=== PATIENT | male | born 1965 | race Caucasian/White ===

== ENCOUNTER 2018-06-07 23:32 | Inpatient (IN) | payer SELFPAY ==
[2018-06-07] MEDS ORDERED: FAMOTIDINE 20 MG/50 ML IVPB 20 MG/50 ML MG IVPB ONE ×2 (23:45→23:59)
[2018-06-07] MEDS ORDERED: SODIUM CHLORIDE 1,000 ML IV ONE (23:45)
[2018-06-07] MEDS ORDERED: ONDANSETRON 4 MG/2 ML VIAL IVPB ONE (23:45)
[2018-06-07] MEDS ORDERED: KETOROLAC TROMETHAMINE 30 MG/1 ML VIAL IVPUSH ONE (23:45)
--- NOTE | 2018-06-07 23:45 | PDOC ---
History of Present Illness - General History Source: Patient Exam Limitations: No Limitations - History of Present Illness Initial Comments: 06/07/18 23:52 The patient is a 53 year old male with a significant past medical history of HTN and gallbladder stones who presents to the ED with one week of nausea, vomiting, and abdominal pain. Patient reports multiple episodes of nonbloody vomiting, 4-5 times a day for the past week, and notes his last episode of vomiting was several hours ago. He also reports constant non radiating epigastric pain that he describes as sharp and burning. Patient also reports chills associated with present symptoms. He states his symptoms feel similar to his history of gallbladder stones. Denies fever or chills. Denies diarrhea or constipation. Denies chest pain or shortness of breath. Denies any other symptoms. PAST MEDICAL HISTORY: Hypertension, gallbladder stone PAST SURGICAL HISTORY: no significant history FAMILY HISTORY: no pertinent history SOCIAL HISTORY: Pt lives with family and is employed. MEDICATIONS: reviewed ALLERGIES: As per nursing notes General: + chills. No fevers, no weakness, no weight loss HEENT: No change in vision. No sore throat,. No ear pain CardioVascular: No chest pain or shortness of breath Respiratory:No cough, or wheezing. Gastrointestinal: + Nausea, vomiting, abdominal pain. no diarrhea or constipation, No rectal bleeding Genitourinary: No dysuria, hematuria, or frequency Musculoskeletal: No joint or muscle pain or swelling Neurologic: No headache, vertigo, dizziness or loss of consciousness Psychiatric: nor depression Skin: No rashes or easy bruising Endocrine: no increased thirst or abnormal weight change Allergic: no skin or latex allergy All other systems reviewed and normal General: Well-nourished well-developed individual, no acute distress HEENT: Throat: Normal, tonsils normal, no erythema or exudate Neck: Supple, no meningeal signs, no lymphadenopathy Eyes::Pupils equal reactive and round, extraocular motion intact Chest: Nontender to palpation Cardiac: S1-S2 normal, regular rate and rhythm, no murmurs rubs or gallops Respiratory: Lungs clear to auscultation bilateral Abdomen: + tenderness on palpation on the epigastric area. Soft, nondistended, normal bowel sounds. Extremities: Warm, dry, no cyanosis, clubbing, or edema Skin: No rashes Neuro: Alert and oriented x3, nonfocal exam, grossly intact, normal gait Psych: Normal mood and affect <Rashad Castle - Last Filed: 06/07/18 23:52> - General History Source: Patient Exam Limitations: No Limitations - History of Present Illness Initial Comments: 06/08/18 00:30 A portion of this note was documented by scribe services under my direction. I have reviewed the details of the note, within reason, and agree with the documentation. The case summary and management plan written by me. Assessment plan: This is a 53-year-old male who comes in complaining of epigastric pain. Patient says he is also had some nausea and vomiting. Patient said the pain is been persistent times one week. Patient did not take anything for the pain. Patient has history of hypertension is healthy. Patient also says he has history of gallstones. Workup initiated including CBC, comp, EKG, chest x-ray, ultrasound of the gallbladder, lipase Patient given Toradol for the pain and Zofran for nausea. Or reassess and review workup EKG shows normal sinus rhythm at a rate of 97, no acute ST-T wave changes however there is some inverted T's inferiorly. Chest x-ray no acute pathology 06/08/18 01:44 Reassessment. Patient still uncomfortable so we'll give some more morphine. Patient's gallbladder ultrasound shows gallstones with a thickened wall. Patient also had a mild white count with left shift. Patient is afebrile however. Admission discussed with Dr. Wayne surgeon who was accepted patient for admission but requested he be transferred to [facility]. <Noreen Birch I - Last Filed: 06/08/18 01:45> - General Chief Complaint: Pain, Acute Stated Complaint: ABD PAIN Time Seen by Provider: 06/07/18 23:35 Past History <Rashad Castle - Last Filed: 06/07/18 23:52> - Past Medical History COPD: Yes GI Disorders: Yes (GALLSTONES) Psychiatric Problems: Yes - Suicide/Smoking/Psychosocial Hx Smoking History: Never smoked <Noreen Birch I - Last Filed: 06/08/18 01:45> - Past Medical History Allergies/Adverse Reactions: Allergies Allergy/AdvReac Type Severity Reaction Status Date / Time No Known Allergies Allergy Unverified 06/07/18 23:38 Home Medications: Ambulatory Orders Amlodipine Besylate 5 mg PO DAILY 06/07/18 Escitalopram Oxalate [Lexapro -] 5 mg PO DAILY 06/07/18 Losartan Potassium 100 mg PO DAILY 06/07/18 *Physical Exam - Vital Signs Last Vital Signs Temp Pulse Resp BP Pulse Ox 98.2 F 104 H 18 196/106 100 06/07/18 23:40 06/07/18 23:40 06/07/18 23:40 06/07/18 23:40 06/07/18 23:40 <Rashad Castle - Last Filed: 06/07/18 23:52> - Vital Signs Last Vital Signs Temp Pulse Resp BP Pulse Ox 98.2 F 104 H 18 196/106 100 06/07/18 23:40 06/07/18 23:40 06/07/18 23:40 06/07/18 23:40 06/07/18 23:40 <Noreen Birch I - Last Filed: 06/08/18 01:45> ED Treatment Course - LABORATORY CBC & Chemistry Diagram: 06/08/18 00:01 06/08/18 00:01 <Noreen Birch I - Last Filed: 06/08/18 01:45> *DC/Admit/Observation/Transfer - Attestations Scribe Attestion: 06/07/18 23:52 Documentation prepared by Rashad Castle, acting as director medical safety for Noreen Birch MD <Rashad Castel - Last Filed: 06/07/18 23:52> - Discharge Dispostion Decision to Admit order: Yes <Noreen Birch I - Last Filed: 06/08/18 01:45> Diagnosis at time of Disposition: Acute cholecystitis - Discharge Dispostion Condition at time of disposition: Stable - Referrals Referrals: Jarvis Warren MD [Primary Care Provider] - - Patient Instructions - Post Discharge Activity
[2018-06-07] MEDS ORDERED: ONDANSETRON 4 MG/2 ML VIAL ONE (23:59)
[2018-06-07] MEDS ORDERED: KETOROLAC TROMETHAMINE 30 MG/1 ML VIAL ONE (23:59)
[2018-06-08] MEDS ORDERED: morphine CARPU-JECT 4 MG/1 ML DISP.SYRIN IVPUSH ONE (00:38)
[2018-06-08] MEDS ORDERED: morphine SULFATE 4 MG/ML VIAL ONE ×2 (00:40→01:45)
[2018-06-08 01:06] LABS: BASO % 0.5 % (0-2.0); EOS % 0.2 % (0-4.5); HEMATOCRIT 42.2 % (35.4-49); HEMOGLOBIN 13.4 GM/dL (11.7-16.9); LYMPH % 11.7 % (8-40); MCH 22.2 pg (25.7-33.7); MCHC 31.9 g/dl (32.0-35.9); MEAN CELL VOLUME 69.6 fl (80-96); MEAN PLT VOLUME 8.9 fl (7.5-11.1); MONO % 4.9 % (3.8-10.2); NEUT % 82.7 % (42.8-82.8); PLATELET COUNT 273 K/MM3 (134-434); RBC 6.06 M/mm3 (4.00-5.60); WHITE BLOOD COUNT 10.1 K/mm3 (4.0-10.0)
[2018-06-08 01:24] LABS: ALBUMIN 4.2 g/dl (3.4-5.0); ANION GAP 8 MMOL/L (8-16); BILIRUBIN,TOTAL 0.7 mg/dL (0.2-1.0); BLOOD UREA NITROGEN 16 mg/dL (7-18); CALCIUM 9.1 mg/dL (8.5-10.1); CHLORIDE 102 mmol/L (98-107); CO2 27 mmol/L (21-32); CREATININE 1.2 mg/dL (0.55-1.3); GLUCOSE,RANDOM 102 mg/dL (74-106); LIPASE 169 U/L (73-393); SGPT/ALT 38 U/L (13-61); SODIUM 137 mmol/L (136-145); TOT PROT 8.4 g/dl (6.4-8.2)
[2018-06-08 01:25] LABS: ALK PHOS 65 U/L (45-117)
[2018-06-08 01:29] LABS: POTASSIUM 4.8 mmol/L (3.5-5.1); SGOT/AST 38 U/L (15-37)
[2018-06-08] MEDS ORDERED: PIPERACILLIN/TAZOB 4.5 GM 4.5 GM in DEXTROSE 5%-WATER 100 ML IVPB ONE (01:33)
[2018-06-08] MEDS ORDERED: PIPERACILLIN/TAZOBACTAM 4.5 GM VIAL IVPB ONE (01:35)
[2018-06-08] MEDS ORDERED: morphine CARPU-JECT 2 MG/1 ML DISP.SYRIN IVPUSH ONE (01:41)
[2018-06-08 05:08] VITALS: BMI 29.5
--- NOTE | 2018-06-08 07:32 | HP ---
CHIEF COMPLAINT: Abdominal Pain PCP: Dr. Jarvis Warren HISTORY OF PRESENT ILLNESS: 53yo M with history of HTN and Depression who presented to [facility] with one week of nausea, NB/NB vomiting, and nonradiating RUQ pain. Pt reports this being similar to previous biliary colic that he has had (both being seen by an ER in [place]). Pt endorses some chills prior to his admission, however currently it has resolved. Pt reports he can walk up multiple flights of stairs without difficulty or shortness of breath. He denies shortness of breath, chest pain, palpitations, diarrhea, constipation. Pt denies any prior diagnosis with ЮЛИЯ or snoring in his sleep. Of note, pt reports being noncompliant with his medication due to lack of insurance. He reports previously taking his Norvasc and Amlodipine and self- reporting that his BP was controlled at that time. 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 [employer] Drugs: Uses cocaine, previously used marijuana Family History: Deferred Allergies No Known Allergies Allergy (Unverified 06/07/18 23:38) HOME MEDICATIONS: Home Medications Medication Instructions Recorded Amlodipine Besylate 5 mg PO DAILY 06/07/18 Escitalopram Oxalate [Lexapro -] 5 mg PO DAILY 06/07/18 Losartan Potassium 100 mg PO DAILY 06/07/18 REVIEW OF SYSTEMS CONSTITUTIONAL: Present: Chills Absent: fever, diaphoresis, generalized weakness, malaise, weight change HEENT: Absent: rhinorrhea, nasal congestion, throat pain, throat swelling, difficulty swallowing, mouth swelling, ear pain, eye pain, visual changes CARDIOVASCULAR: Absent: chest pain, syncope, palpitations, irregular heart rate, lightheadedness , peripheral edema RESPIRATORY: Absent: cough, shortness of breath, dyspnea with exertion, orthopnea, wheezing, stridor, hemoptysis GASTROINTESTINAL: Present: Abd pain, nausea, vomiting Absent: abdominal distension, diarrhea, constipation, melena, hematochezia GENITOURINARY: Absent: dysuria, frequency, urgency, hesitancy HEMATOLOGIC/IMMUNOLOGIC: Absent: easy bleeding, easy bruising NEUROLOGIC: Absent: headache, focal weakness or paresthesias, dizziness PSYCHIATRIC: Absent: anxiety, suicidal ideation PHYSICAL EXAMINATION Vital Signs - 24 hr 06/07/18 06/08/18 06/08/18 23:40 01:23 02:21 Temperature 98.2 F 98.7 F Pulse Rate 104 H Pulse Rate [ 93 H 96 H Radial] Respiratory 18 16 16 Rate Blood Pressure 196/106 Blood Pressure 183/106 148/95 [Arm] O2 Sat by Pulse 100 99 97 Oximetry (%) 06/08/18 06/08/18 03:45 04:58 Temperature 98.0 F Pulse Rate 66 Pulse Rate [ 75 Radial] Respiratory 14 18 Rate Blood Pressure 149/95 Blood Pressure 131/78 [Arm] O2 Sat by Pulse 97 99 Oximetry (%) GENERAL: Awake, alert, and fully oriented, in no acute distress. HEENT: EOMI, WINNIE, sclera anicteric, [id number] mucosa LUNGS: CTA bilaterally. No wheezes, rhonchi or crackles. No accessory muscle use. On RA HEART: RRR, normal S1 and S2 without murmur ABDOMEN: Soft, nondistended, hypoactive BS, slight RUQ tenderness, no rebound or guarding, no masses, no hepatomegaly percussed, - Dow's at this time MUSCULOSKELETAL: No CVA tenderness. EXTREMITIES: 2+ DP and radial pulses, No edema. No calf tenderness NEUROLOGICAL: Nonfocal. Normal speech. Gait not observed PSYCHIATRIC: Cooperative. Good eye contact. Appropriate mood and affect. SKIN: Warm, dry, no rashes or lesions noted Laboratory Results - last 24 hr 06/08/18 06/08/18 06/08/18 00:01 00:01 00:01 WBC 10.1 H RBC 6.06 H Hgb 13.4 Hct 42.2 MCV 69.6 L MCH 22.2 L MCHC 31.9 L RDW 16.0 H Plt Count 273 MPV 8.9 Absolute Neuts (auto) 8.4 H Neutrophils % 82.7 Lymphocytes % 11.7 Monocytes % 4.9 Eosinophils % 0.2 Basophils % 0.5 Nucleated RBC % 0 Sodium 137 Potassium 4.8 Chloride 102 Carbon Dioxide 27 Anion Gap 8 BUN 16 Creatinine 1.2 Creat Clearance w eGFR > 60 Random Glucose 102 Calcium 9.1 Total Bilirubin 0.7 AST 38 H ALT 38 Alkaline Phosphatase 65 Creatine Kinase Creatine Kinase Index CK-MB (CK-2) Troponin I Cancelled Total Protein 8.4 H Albumin 4.2 Lipase 169 06/08/18 00:01 WBC RBC Hgb Hct MCV MCH MCHC RDW Plt Count MPV Absolute Neuts (auto) Neutrophils % Lymphocytes % Monocytes % Eosinophils % Basophils % Nucleated RBC % Sodium Potassium Chloride Carbon Dioxide Anion Gap BUN Creatinine Creat Clearance w eGFR Random Glucose Calcium Total Bilirubin AST ALT Alkaline Phosphatase Creatine Kinase 157 Creatine Kinase Index 0.6 CK-MB (CK-2) < 1.00 Troponin I < 0.02 Total Protein Albumin Lipase EKG - NSR @ 97 bpm. Normal axis. Isolated TWI in lead II only; otherwise no ST abnormalities. QTc WNL ASSESSMENT/PLAN: 53yo M with c/o abdominal pain/n/v who is admitted for acute cholecystitis 1) Acute cholecystitis --Pain control: Toradol 30 q6h pain 6-10 PRN, Ofirmev 1gm q6h pain 1-5 PRN --Zofran 4mg q6h PRN for nausea --NPO (BP medication with sip of water ok) --Gentle IVF while NPO --RUQ performed in ER; awaiting read. Per mine: thickened GB wall with apparent cholelithiasis. CBD .58-.6cm --CXR without acute pathology noted --SCD --Rocephin 1gm daily for surgery ppx --Dr. Wayne consulted 2) HTN --Initially elevated due to lack of pain control --Norvasc 5mg qdaily starting now --Will add on home dose Losartan 100mg qDaily if need prior to surgery; otherwise will initiate after 3) Polysubstance use --Not in withdrawals --Would avoid morphine as a result --Will monitor FEN: Fluids: D5-LR +20KCl Electrolyte abnormalities: None currently Nutrition: NPO except sip of water with BP medication PPX: DVT - SCDs both legs GI - Not indicated currently Dispo: Admit M/S; awaiting surgery rec's Surgery stratification: Low-mod pt for moderate risk surgery due to intraabdominal nature only Case discussed with Dr. Ole Steele, DO - IM PGY-2 Visit type - Emergency Visit Emergency Visit: No - New Patient This patient is new to me today: Yes Date on this admission: 06/08/18 - Critical Care Critical Care patient: No Hospitalist Screening - Colonoscopy Questionnaire Colonoscopy Questionnaire: Colonoscopy Questionnaire - Patient: 50 - 75 years old and never had a screening colonoscopy: Unknown History of colon or rectal polyps, or CA: Unknown History of IBD, Crohn's disease or UC: Unknown History of abdominal radiation therapy as a child: Unknown - Relative: 1 with colon or rectal CA, or polyps at age 60 or younger: Unknown Colon or rectal CA diagnosed at age 45 or younger: Unknown Multiple relatives with colon or rectal CA: Unknown - Outcome: Screening Result: Negative Screen
[2018-06-08] MEDS ORDERED: MORPHINE SULFATE 2 MG/ML VIAL IVPUSH PRN (07:36)
[2018-06-08] MEDS ORDERED: ACETAMINOPHEN 325 MG TABLET (FP) PO PRN (07:54)
[2018-06-08] MEDS ORDERED: ONDANSETRON 4 MG/2 ML VIAL IVPUSH PRN (07:54)
[2018-06-08] MEDS ORDERED: KETOROLAC TROMETHAMINE 30 MG/1 ML VIAL IVPUSH PRN (08:16)
[2018-06-08] MEDS ORDERED: ACETAMINOPHEN 1000 MG/100 ML VIAL (NON FORMULARY) IVPB PRN (08:21)
[2018-06-08] MEDS: D5-LR+20 MEQ KCL - 20 MEQ/1,000 ML INFUS.BAG IV SCH ×2 (08:36→13:54)
[2018-06-08 08:37] LABS: BASO % 0.4 % (0-2.0); EOS % 1.4 % (0-4.5); HEMATOCRIT 36.3 % (35.4-49); HEMOGLOBIN 11.8 GM/dL (11.7-16.9); LYMPH % 34.1 % (8-40); MCH 22.4 pg (25.7-33.7); MCHC 32.4 g/dl (32.0-35.9); MEAN CELL VOLUME 69.1 fl (80-96); MONO % 7.1 % (3.8-10.2); PLATELET COUNT 230 K/MM3 (134-434); RBC 5.26 M/mm3 (4.00-5.60); RDW 16.1 % (11.9-15.9); WHITE BLOOD COUNT 7.1 K/mm3 (4.0-10.0)
[2018-06-08 09:01] LABS: ALBUMIN 3.3 g/dl (3.4-5.0); ALK PHOS 48 U/L (45-117); ANION GAP 9 MMOL/L (8-16); BILIRUBIN,DIRECT 0.2 mg/dL (0.0-0.2); BILIRUBIN,TOTAL 0.9 mg/dL (0.2-1.0); BLOOD UREA NITROGEN 15 mg/dL (7-18); CALCIUM 8.4 mg/dL (8.5-10.1); CHLORIDE 106 mmol/L (98-107); CO2 27 mmol/L (21-32); CREATININE 1.1 mg/dL (0.55-1.3); GLUCOSE,RANDOM 81 mg/dL (74-106); MAGNESIUM 2.1 mg/dL (1.8-2.4); PHOSPHOROUS 4.4 mg/dL (2.5-4.9); SGOT/AST 9 U/L (15-37); SGPT/ALT 27 U/L (13-61); SODIUM 142 mmol/L (136-145); TOT PROT 6.3 g/dl (6.4-8.2)
[2018-06-08 09:12] LABS: INR 1.12 (0.83-1.09); PROTHROMBIN TIME (PATIENT) 12.6 SEC (9.7-13.0)
[2018-06-08] MEDS ORDERED: cefTRIAXone SODIUM 1 GM VIAL ONE (09:14)
[2018-06-08] MEDS ORDERED: DEXTROSE 5%-WATER - 50 ML IVPB ONE (09:15)
[2018-06-08] MEDS: CEFTRIAXONE 1 GM in DEXTROSE 5%-WATER - 50 ML IVPB SCH (09:17)
[2018-06-08] MEDS: amLODIPine BESYLATE 5 MG TABLET (FP) PO SCH (09:17)
--- NOTE | 2018-06-08 09:30 | PN ---
Teaching Attending Note Name of Resident: Jordy Steele ATTENDING PHYSICIAN STATEMENT I saw and evaluated the patient. I reviewed the resident's note and discussed the case with the resident. I agree with the resident's findings and plan as documented with exceptions below. SUBJECTIVE: 53 yom with PMHx of HTN, depression, polysubstance use (cocaine, occasional street "oxy"), prior ETOH abuse, comes with 1 week of nausea, bilious nonbloody vomitus, abdominal pain RUQ/ruddy-umbilical intermittent, occasionally associated with PO intake, decreased po intake and subjective chills. Patient reportedly had a similar episode 1 year ago, when states was advised to have his gall bladder removed but he never followed up. Reports being seen for the same complaints a week ago at another hospital and sent out on oral medications. Currently denies any nausea, vomiting, some RUQ abdominal pain. Has not been compliant with his follow ups. Reports being off his meds for a while, recently resumed his anti-hypertensives 3 weeks ago. Last ETOH/cocaine use reportedly 3 weeks ago none recently. Also reports being 'hooked' on pain meds when given for herniated disc years ago. 12 point ROS done, neg except above. No c/o exertional chest pain, dyspnea, orthopnea, PND, leg swelling or new concerns. OBJECTIVE: Vital Signs Period Temp Pulse Resp BP Sys/Ingram Pulse Ox Last 24 Hr 98.0 F-98.7 F 63-104 14-20 131-196/78-106 97-100 Intake & Output 06/05/18 06/06/18 06/07/18 06/08/18 23:59 23:59 23:59 23:59 Intake Total 1300 Balance 1300 Weight 240 lb 236 lb 3 oz GENERAL: Awake, alert, and fully oriented, in no acute distress. HEAD: Normal with no signs of trauma. EYES: Pupils equal, round and reactive to light, extraocular movements intact, sclera anicteric, conjunctiva clear. No lid lag. EARS, NOSE, THROAT: Ears normal, nares patent, oropharynx clear without exudates. Moist mucous membranes. NECK: soft, supple, no JVD LUNGS: Breath sounds equal, clear to auscultation bilaterally. No wheezes, and no crackles. No accessory muscle use. HEART: S1S2 regular ABDOMEN: Soft, positive Dow's sign, NT otherwise, hepatomegaly, ND, no voluntary or involuntary guarding or rigidity, positive bowel sounds. MUSCULOSKELETAL: Normal range of motion at all joints. No bony deformities or tenderness. No CVA tenderness. UPPER EXTREMITIES: 2+ pulses, warm, well-perfused. No cyanosis. No clubbing. No peripheral edema. LOWER EXTREMITIES: 2+ pulses, warm, well-perfused. No calf tenderness. minimal Right toes edema, non tender (reports since hitting his right foot to a musical instrument few weeks ago NEUROLOGICAL: Cranial nerves II-XII intact. Normal speech. Facial symmetry, tongue midline, PERRL, EOMI, power 5/5, decreased sensation right toes (reports since trauma more than a month ago) PSYCHIATRIC: Cooperative. Good eye contact. Appropriate mood and affect. SKIN: Warm, dry, normal turgor, no rashes or lesions noted, normal capillary refill. Home Medications Medication Instructions Recorded Amlodipine Besylate 5 mg PO DAILY 06/07/18 Escitalopram Oxalate [Lexapro -] 5 mg PO DAILY 06/07/18 Losartan Potassium 100 mg PO DAILY 06/07/18 Active Medications Acetaminophen (Ofirmev Injection -) 1,000 mg IVPB Q6H PRN PRN Reason: PAIN LEVEL 1-5 Amlodipine Besylate (Norvasc -) 5 mg PO DAILY [facility] Last Admin: 06/08/18 09:17 Dose: 5 mg Dextrose/Lactated Ringer's (D5-Lr+20 Meq Kcl -) 20 meq in 1,000 mls @ 75 mls/ hr IV ASDIR [facility] Last Admin: 06/08/18 08:36 Dose: 75 mls/hr Ceftriaxone Sodium 1 gm/ (Dextrose) 50 mls @ 100 mls/hr IVPB DAILY [facility]; Protocol Last Admin: 06/08/18 09:17 Dose: 100 mls/hr Ketorolac Tromethamine (Toradol Injection -) 30 mg IVPUSH Q6H PRN PRN Reason: PAIN LEVEL 7 - 10 Stop: 06/13/18 08:15 Ondansetron HCl (Zofran Injection) 4 mg IVPUSH Q6H PRN PRN Reason: NAUSEA AND/OR VOMITING Laboratory Results - last 24 hr 06/08/18 06/08/18 06/08/18 00:01 00:01 00:01 WBC 10.1 H RBC 6.06 H Hgb 13.4 Hct 42.2 MCV 69.6 L MCH 22.2 L MCHC 31.9 L RDW 16.0 H Plt Count 273 MPV 8.9 Absolute Neuts (auto) 8.4 H Neutrophils % 82.7 Lymphocytes % 11.7 Monocytes % 4.9 Eosinophils % 0.2 Basophils % 0.5 Nucleated RBC % 0 PT with INR INR Sodium 137 Potassium 4.8 Chloride 102 Carbon Dioxide 27 Anion Gap 8 BUN 16 Creatinine 1.2 Creat Clearance w eGFR > 60 Random Glucose 102 Calcium 9.1 Phosphorus Magnesium Total Bilirubin 0.7 Direct Bilirubin AST 38 H ALT 38 Alkaline Phosphatase 65 Creatine Kinase Creatine Kinase Index CK-MB (CK-2) Troponin I Cancelled Total Protein 8.4 H Albumin 4.2 Lipase 169 06/08/18 06/08/18 06/08/18 00:01 08:18 08:18 WBC 7.1 RBC 5.26 Hgb 11.8 Hct 36.3 MCV 69.1 L MCH 22.4 L MCHC 32.4 RDW 16.1 H Plt Count 230 MPV 8.0 D Absolute Neuts (auto) 4.0 Neutrophils % 57.0 D Lymphocytes % 34.1 D Monocytes % 7.1 Eosinophils % 1.4 D Basophils % 0.4 Nucleated RBC % 0 PT with INR INR Sodium 142 Potassium 4.0 Chloride 106 Carbon Dioxide 27 Anion Gap 9 BUN 15 Creatinine 1.1 Creat Clearance w eGFR > 60 Random Glucose 81 Calcium 8.4 L Phosphorus 4.4 Magnesium 2.1 Total Bilirubin 0.9 Direct Bilirubin 0.2 AST 9 L ALT 27 Alkaline Phosphatase 48 Creatine Kinase 157 Creatine Kinase Index 0.6 CK-MB (CK-2) < 1.00 Troponin I < 0.02 Total Protein 6.3 L Albumin 3.3 L Lipase 06/08/18 08:18 WBC RBC Hgb Hct MCV MCH MCHC RDW Plt Count MPV Absolute Neuts (auto) Neutrophils % Lymphocytes % Monocytes % Eosinophils % Basophils % Nucleated RBC % PT with INR 12.60 INR 1.12 H Sodium Potassium Chloride Carbon Dioxide Anion Gap BUN Creatinine Creat Clearance w eGFR Random Glucose Calcium Phosphorus Magnesium Total Bilirubin Direct Bilirubin AST ALT Alkaline Phosphatase Creatine Kinase Creatine Kinase Index CK-MB (CK-2) Troponin I Total Protein Albumin Lipase Gall bladder US - thickened wall, gall stones, hepatomegaly, mild fatty infiltration EKG NSR, QTc 390s CXR prelim read, no acute process ASSESSMENT AND PLAN: 53 yom with HTN, depression, ETOH/cocaine use, admitted with acute calculous cholecystitis. -Acute uncomplicated calculous cholecystitis -Uncontrolled HTN, likely from non compliance -?Mild LEO from hypovolumia -Depression -ETOH/cocaine use Plan: Surgery consulted with Dr. Wayne, aware, follow up for surgical recs. NPO, IVF, pain control with tylenol/toradol. Blood cx. Ceftriaxone for now. Serial abdominal exams. Hold losartan. IVF, monitor renal function. Continue norvasc. Continue lexapro Drug screen Type and screen/coags DVTPPX heparin Dispo pending surgical plans and clinical improvement. Plan discussed with patient in detail, all questions answered Patient relays understanding and in agreement with the plan. Total admit time 65 min.
[2018-06-08] MEDS ORDERED: PATIENT'S OWN MEDICATION (NON-FORMULARY) (Losartan Potassium [Losartan Potassium] 100 MG) PO SCH (10:00)
--- NOTE | 2018-06-08 10:02 | CONSULT ---
- Consultation REQUESTING PROVIDER: Rodolfo BARNETT CONSULT REQUEST: We have been asked to surgically evaluate this patient for abdominal pain/nausea and vomiting. PCP:Calvin Handy MD HISTORY OF PRESENT ILLNESS: # episodes of abdominal pain in a patient w/ known gallstones; h/o ruq/epigastric abdominal pain worked up in the past; he was intially found to have symptomatic cholelithiasis and was told he did not need to have surgery; after that he has had # similar episodes and reports # visits to local ER's where he was txed and released and told he could gave elective surgery; this never happened and he presents here now; he relates to post prandial colicky RUQ pain; he denies dark urine/light stools; he has no other GI / c/o; he got relief from morphine in the ER. PMHx: hypertension; known cholelithiasis PSHx: none Home Medications Medication Instructions Recorded Amlodipine Besylate 5 mg PO DAILY 06/07/18 Escitalopram Oxalate [Lexapro -] 5 mg PO DAILY 06/07/18 Losartan Potassium 100 mg PO DAILY 06/07/18 Allergies Allergy/AdvReac Type Severity Reaction Status Date / Time No Known Allergies Allergy Unverified 06/07/18 23:38 PHYSICAL EXAM: GENERAL: Awake, alert, and fully oriented, in no acute distress. HEAD: Normal with no signs of trauma. EYES: sclera anicteric, conjunctiva clear. NECK: Normal ROM, supple without lymphadenopathy, JVD, or masses. ABDOMEN: Soft, slight RUQ tenderness to palpation, not distended, normoactive bowel sounds, no guarding, no rebound, no masses. No organomegaly. No hernias MUSCULOSKELETAL: Normal ROM at all joints. No bony deformities or tenderness. No CVA tenderness. UPPER EXTREMITIES: 2+ pulses, warm, well-perfused. No cyanosis. Cap refill <2 seconds. No peripheral edema. LOWER EXTREMITIES: 2+ pulses, warm, well-perfused. No calf tenderness. No peripheral edema. NEUROLOGICAL: Normal speech, gait not observed. PSYCH: Cooperative. Good eye contact. Appropriate mood and affect. SKIN: Warm, dry, normal turgor, no rashes or lesions noted. Vital Signs Temperature 98.2 F 06/08/18 09:00 Pulse Rate 63 06/08/18 09:00 Respiratory Rate 20 06/08/18 09:00 Blood Pressure 146/92 06/08/18 09:00 O2 Sat by Pulse Oximetry (%) 99 06/08/18 04:58 Lab Results WBC 7.1 K/mm3 (4.0-10.0) 06/08/18 08:18 RBC 5.26 M/mm3 (4.00-5.60) 06/08/18 08:18 Hgb 11.8 GM/dL (11.7-16.9) 06/08/18 08:18 Hct 36.3 % (35.4-49) 06/08/18 08:18 MCV 69.1 fl (80-96) L 06/08/18 08:18 MCHC 32.4 g/dl (32.0-35.9) 06/08/18 08:18 RDW 16.1 % (11.9-15.9) H 06/08/18 08:18 Plt Count 230 K/MM3 (134-434) 06/08/18 08:18 Sodium 142 mmol/L (136-145) 06/08/18 08:18 Potassium 4.0 mmol/L (3.5-5.1) 06/08/18 08:18 Chloride 106 mmol/L (98-107) 06/08/18 08:18 Carbon Dioxide 27 mmol/L (21-32) 06/08/18 08:18 Anion Gap 9 MMOL/L (8-16) 06/08/18 08:18 BUN 15 mg/dL (7-18) 06/08/18 08:18 Creatinine 1.1 mg/dL (0.55-1.3) 06/08/18 08:18 Random Glucose 81 mg/dL (74-106) 06/08/18 08:18 Calcium 8.4 mg/dL (8.5-10.1) L 06/08/18 08:18 INR 1.12 (0.83-1.09) H 06/08/18 08:18 US-cholelithiasis o/w normal Labs and remainder of w/u to date reviewed. IMP: acute cholecystitis/cholelithiasis PLAN: Clear liquid diet as tolerated; IVF; pain control; IVAB's; for lap rolf possible open 06/10/18; r/b/t/a's d/w him and he is amenable. Matteo Wayne MD FACS
[2018-06-08] MEDS: morphine SULFATE 4 MG/ML VIAL IVPUSH PRN ×3 (11:12→22:07)
[2018-06-08] MEDS: LOSARTAN POTASSIUM 50 MG TABLET (FP) PO SCH (13:52)
[2018-06-08 14:06] LABS: URINE APPEARANCE CLEAR; URINE BILIRUBIN NEGATIVE (<2.0 mg/dL); URINE COLOR LTYELLOW; URINE GLUCOSE (UA) NEGATIVE (NEGATIVE); URINE KETONE NEGATIVE (NEGATIVE); URINE LEUK ESTERASE NEGATIVE (NEGATIVE); URINE NITRITE NEGATIVE (NEGATIVE); URINE PROTEIN NEGATIVE (NEGATIVE); URINE UROBILINOGEN NEGATIVE mg/dL (0.2-1.0)
[2018-06-08 14:24] LABS: COCAINE, UR NEGATIVE ng/ml (CUTOFF=300); METHADONE, UR NEGATIVE ng/ml (CUTOFF=300); OPIATES, URI POSITIVE ng/ml (CUTOFF=300); URINE BARBITURATES NEGATIVE ng/ml (CUTOFF=200); URINE BENZODIAZEPINES POSITIVE ng/ml (CUTOFF=200)
[2018-06-08 14:29] LABS: PHENCYCLIDINE,URINE NEGATIVE ng/ml (CUTOFF=25); URINE AMPHETAMINES NEGATIVE ng/ml (CUTOFF=500)
[2018-06-09] MEDS: D5-LR+20 MEQ KCL - 20 MEQ/1,000 ML INFUS.BAG IV SCH ×3 (06:11→21:36)
[2018-06-09] MEDS ORDERED: morphine SULFATE 4 MG/ML VIAL IVPUSH PRN (08:06)
[2018-06-09] MEDS ORDERED: cefTRIAXone SODIUM 1 GM VIAL ONE (08:29)
[2018-06-09] MEDS ORDERED: DEXTROSE 5%-WATER - 50 ML IVPB ONE (08:29)
[2018-06-09] MEDS: ESCITALOPRAM OXALATE 10 MG TABLET (FP) PO SCH (09:07)
[2018-06-09] MEDS: amLODIPine BESYLATE 5 MG TABLET (FP) PO SCH (09:07)
[2018-06-09] MEDS: LOSARTAN POTASSIUM 50 MG TABLET (FP) PO SCH (09:07)
[2018-06-09] MEDS: CEFTRIAXONE 1 GM in DEXTROSE 5%-WATER - 50 ML IVPB SCH (09:07)
[2018-06-09 09:10] LABS: BASO % 0.8 % (0-2.0); EOS % 2.1 % (0-4.5); HEMATOCRIT 38.5 % (35.4-49); LYMPH % 23.3 % (8-40); MCH 21.8 pg (25.7-33.7); MCHC 31.3 g/dl (32.0-35.9); MEAN CELL VOLUME 69.8 fl (80-96); MEAN PLT VOLUME 8.4 fl (7.5-11.1); MONO % 7.1 % (3.8-10.2); NEUT % 66.7 % (42.8-82.8); PLATELET COUNT 221 K/MM3 (134-434); RBC 5.52 M/mm3 (4.00-5.60); RDW 15.7 % (11.9-15.9); WHITE BLOOD COUNT 6.7 K/mm3 (4.0-10.0)
[2018-06-09 09:53] LABS: ALBUMIN 3.4 g/dl (3.4-5.0); ANION GAP 10 MMOL/L (8-16); BLOOD UREA NITROGEN 10 mg/dL (7-18); CALCIUM 8.5 mg/dL (8.5-10.1); CHLORIDE 104 mmol/L (98-107); CO2 27 mmol/L (21-32); GLUCOSE,RANDOM 101 mg/dL (74-106); MAGNESIUM 2.1 mg/dL (1.8-2.4); POTASSIUM 4.7 mmol/L (3.5-5.1); SODIUM 141 mmol/L (136-145)
[2018-06-09 09:56] LABS: ALK PHOS 47 U/L (45-117); BILIRUBIN,TOTAL 0.8 mg/dL (0.2-1.0); CREATININE 1.1 mg/dL (0.55-1.3); PHOSPHOROUS 4.1 mg/dL (2.5-4.9); SGOT/AST 13 U/L (15-37); SGPT/ALT 28 U/L (13-61); TOT PROT 6.4 g/dl (6.4-8.2)
--- NOTE | 2018-06-09 11:06 | PN ---
Physical Exam: SUBJECTIVE: Patient seen and examined. Pain improved, no new complaints. Tolerating liquids well, ambulating with no concerns. OBJECTIVE: Vital Signs Period Temp Pulse Resp BP Sys/Ingram Pulse Ox Last 24 Hr 97.8 F-99 F 61-72 18-20 136-163/68-97 98 GENERAL: lying in bed in no acute distress Chest: CTAB, no rales or wheezing CVS;S1S2 regular Abdomen;Soft, obese, NT throughout, positive bowel sounds, no voluntary or involuntary guarding or rigidity Extremities: no edema Laboratory Results - last 24 hr 06/08/18 06/08/18 06/08/18 10:00 12:15 12:40 WBC RBC Hgb Hct MCV MCH MCHC RDW Plt Count MPV Absolute Neuts (auto) Neutrophils % Lymphocytes % Monocytes % Eosinophils % Basophils % Nucleated RBC % Hypochromia Microcytosis Sodium Potassium Chloride Carbon Dioxide Anion Gap BUN Creatinine Creat Clearance w eGFR Random Glucose Calcium Phosphorus Magnesium Total Bilirubin AST ALT Alkaline Phosphatase Total Protein Albumin Urine Color Urine Appearance Urine pH Ur Specific [place] Urine Protein Urine Glucose (UA) Urine Ketones Urine Blood Urine Nitrite Urine Bilirubin Urine Urobilinogen Ur Leukocyte Esterase Opiates Screen Positive Methadone Screen Negative Barbiturate Screen Negative Phencyclidine Screen Negative Ur Amphetamines Screen Negative MDMA (Ecstasy) Screen Negative Benzodiazepines Screen Positive Cocaine Screen Negative U Marijuana (THC) Screen Negative Blood Type B POSITIVE B POSITIVE Antibody Screen Negative 06/08/18 06/09/18 06/09/18 12:40 08:24 08:24 WBC 6.7 RBC 5.52 Hgb 12.0 Hct 38.5 MCV 69.8 L MCH 21.8 L MCHC 31.3 L RDW 15.7 Plt Count 221 MPV 8.4 Absolute Neuts (auto) 4.5 Neutrophils % 66.7 Lymphocytes % 23.3 D Monocytes % 7.1 Eosinophils % 2.1 Basophils % 0.8 Nucleated RBC % 0 Hypochromia 1+ Microcytosis 1+ Sodium 141 Potassium 4.7 Chloride 104 Carbon Dioxide 27 Anion Gap 10 BUN 10 Creatinine 1.1 Creat Clearance w eGFR > 60 Random Glucose 101 Calcium 8.5 Phosphorus 4.1 Magnesium 2.1 Total Bilirubin 0.8 AST 13 L ALT 28 Alkaline Phosphatase 47 Total Protein 6.4 Albumin 3.4 Urine Color Ltyellow Urine Appearance Clear Urine pH 6.0 Ur Specific [place] 1.012 Urine Protein Negative Urine Glucose (UA) Negative Urine Ketones Negative Urine Blood Negative Urine Nitrite Negative Urine Bilirubin Negative Urine Urobilinogen Negative Ur Leukocyte Esterase Negative Opiates Screen Methadone Screen Barbiturate Screen Phencyclidine Screen Ur Amphetamines Screen MDMA (Ecstasy) Screen Benzodiazepines Screen Cocaine Screen U Marijuana (THC) Screen Blood Type Antibody Screen Active Medications Generic Name Dose Route Start Last Admin Trade Name Freq PRN Reason Stop Dose Admin Acetaminophen 1,000 mg 06/08/18 08:21 Ofirmev Injection - IVPB Q6H PRN PAIN LEVEL 1-5 Amlodipine Besylate 5 mg 06/08/18 10:00 06/09/18 09:07 Norvasc - PO 5 mg DAILY DEE Administration Escitalopram Oxalate 5 mg 06/09/18 10:00 06/09/18 09:07 Lexapro - PO 5 mg DAILY DEE Administration Heparin Sodium (Porcine) 5,000 unit 06/09/18 14:00 Heparin - SQ TID [facility] Dextrose/Lactated Ringer's 20 meq in 1,000 mls @ 75 mls/hr 06/08/18 08:00 09:09 D5-Lr+20 Meq Kcl - IV Not Given ASDIR [facility] Ceftriaxone Sodium 1 gm/ 50 mls @ 100 mls/hr 06/08/18 10:00 06/09/18 09:07 Dextrose IVPB 100 mls/hr DAILY [facility] Administration Protocol Ketorolac Tromethamine 30 mg 06/08/18 08:16 06/09/18 06:12 Toradol Injection - IVPUSH 06/13/18 08:15 30 mg Q6H PRN Administration PAIN LEVEL 7 - 10 Losartan Potassium 100 mg 06/08/18 13:30 06/09/18 09:07 Cozaar - PO 100 mg DAILY DEE Administration Morphine Sulfate 4 mg 06/09/18 11:01 Morphine Sulfate IVPUSH Q6H PRN PAIN LEVEL 7 - 10 Ondansetron HCl 4 mg 06/08/18 07:54 Zofran Injection IVPUSH Q6H PRN NAUSEA AND/OR VOMITING ASSESSMENT/PLAN: 53 yom with HTN, depression, ETOH/cocaine use, admitted with acute calculous cholecystitis. -Acute uncomplicated calculous cholecystitis -Uncontrolled HTN, likely from non compliance -?Mild LEO from hypovolumia -Depression -Polysubstance use (ETOH, cocaine, occasional "oxy/xanax") Plan: Surgery input noted, plan for CCY tomorrow. NPo after midnight. COntinue iVF. Pain control with tylenol/toradol. Morphine only for severe pain. Ceftriaxone day 2. Blood cx neg so far. Serial abdominal exams. Continue amlodipine, resume losartan. Monitor renal function. Continue lexapro Drug screen noted, discussed with patient, initially declined recent benzo use, then states got xanax from doctor, last dose 4 days ago. Type and screen/coags DVTPPX heparin, hold pre-op Dispo pending surgical plans and clinical improvement, d/c in 24 hours post CCY if no concerns. Plan discussed with patient in detail, all questions answered Patient relays understanding and in agreement with the plan. Discussed with nursing. Visit type - Emergency Visit Emergency Visit: Yes ED Registration Date: 06/08/18 Care time: The patient presented to the Emergency Department on the above date and was hospitalized for further evaluation of their emergent condition. - New Patient This patient is new to me today: No - Critical Care Critical Care patient: No - Discharge Referral Referred to [facility] Med P.C.: No
--- NOTE | 2018-06-09 11:24 | PN ---
Progress Note (short form) - Note Progress Note: Attending Surgeon No c/o; tolerated liquids VSS AF abdo-benign IMP: acute cholecystitis; cholelithiasis PLAN: Lap rolf 06/10/18 as previously outlined. Matteo Wayne MD FACS
[2018-06-09] MEDS ORDERED: HEPARIN NA (PORCINE) 5,000 UNITS/ML 1ML VIAL SQ SCH ×2 (14:00→23:59)
[2018-06-09] MEDS: morphine SULFATE 4 MG/ML VIAL IVPUSH PRN (19:58)
--- NOTE | 2018-06-09 22:24 | EKG ---
Test Reason : Blood Pressure : / mmHG Vent. Rate : 097 BPM Atrial Rate : 097 BPM P-R Int : 138 ms QRS Dur : 090 ms QT Int : 362 ms P-R-T Axes : 027 034 -31 degrees QTc Int : 459 ms NORMAL SINUS RHYTHM T WAVE ABNORMALITY, CONSIDER INFERIOR ISCHEMIA ABNORMAL ECG NO PREVIOUS ECGS AVAILABLE Confirmed by GABBY SCHMIDT MD ([id number]) on 06/09/2018 10:24:25 PM Referred By: MD JIMENEZ Confirmed By:GABBY SCHMIDT MD
[2018-06-10] MEDS: morphine SULFATE 4 MG/ML VIAL IVPUSH PRN ×2 (02:41→20:10)
[2018-06-10 06:38] LABS: BASO % 0.6 % (0-2.0); EOS % 1.8 % (0-4.5); HEMATOCRIT 39.2 % (35.4-49); HEMOGLOBIN 12.5 GM/dL (11.7-16.9); LYMPH % 29.3 % (8-40); MCH 21.9 pg (25.7-33.7); MCHC 31.9 g/dl (32.0-35.9); MEAN CELL VOLUME 68.7 fl (80-96); MEAN PLT VOLUME 8.2 fl (7.5-11.1); NEUT % 61.3 % (42.8-82.8); PLATELET COUNT 240 K/MM3 (134-434); RDW 15.7 % (11.9-15.9); WHITE BLOOD COUNT 6.7 K/mm3 (4.0-10.0)
[2018-06-10 06:45] LABS: ADD RBC MORPHOLOGY YES
[2018-06-10 07:08] LABS: ALBUMIN 3.5 g/dl (3.4-5.0); ALK PHOS 54 U/L (45-117); ANION GAP 11 MMOL/L (8-16); BILIRUBIN,TOTAL 0.6 mg/dL (0.2-1.0); BLOOD UREA NITROGEN 6 mg/dL (7-18); CALCIUM 8.7 mg/dL (8.5-10.1); CHLORIDE 102 mmol/L (98-107); CO2 28 mmol/L (21-32); CREATININE 1.1 mg/dL (0.55-1.3); GLUCOSE,RANDOM 89 mg/dL (74-106); MAGNESIUM 1.9 mg/dL (1.8-2.4); PHOSPHOROUS 4.5 mg/dL (2.5-4.9); SGOT/AST 10 U/L (15-37); SGPT/ALT 26 U/L (13-61); SODIUM 141 mmol/L (136-145); TOT PROT 6.7 g/dl (6.4-8.2)
--- NOTE | 2018-06-10 07:19 | PN ---
Physical Exam: SUBJECTIVE: Patient seen and examined this AM. Pt currently states he is not having any pain. Expresses concern for his "personal problems" at home, including recent loss of job and history of substance abuse. He recently completed rehab. He says he is not in pain and not nauseas due to the fact that he has not eaten in three days. Pt expresses being anxious about the surgery. OBJECTIVE: Vital Signs Period Temp Pulse Resp BP Sys/Ingram Pulse Ox Last 24 Hr 97.7 F-98.9 F 64-79 18-18 136-159/61-96 97 GENERAL: A&O, no acute distress HEAD: Normocephalic, atraumatic. EYES: PERRL, no scleral icterus EARS, NOSE, THROAT: oropharynx clear without exudates. Moist mucous membranes. NECK: supple without lymphadenopathy LUNGS: CTA b/l, no crackles or wheezes HEART: Regular rate and rhythm, normal S1 and S2 without murmur ABDOMEN: Soft, nontender to palpation, Dow sign negative, normoactive bowel sounds MUSCULOSKELETAL: No bony deformities or tenderness. EXTREMITIES: 2+ pulses, warm, well-perfused. No peripheral edema. NEUROLOGICAL: Cranial nerves II-XII grossly intact. Normal speech. PSYCHIATRIC: Cooperative. Good eye contact. Appropriate mood and affect. SKIN: Warm, dry, no rashes or lesions noted Laboratory Results - last 24 hr 06/09/18 06/09/18 06/10/18 08:24 08:24 06:00 WBC 6.7 6.7 RBC 5.52 5.70 H Hgb 12.0 12.5 Hct 38.5 39.2 MCV 69.8 L 68.7 L MCH 21.8 L 21.9 L MCHC 31.3 L 31.9 L RDW 15.7 15.7 Plt Count 221 240 MPV 8.4 8.2 Absolute Neuts (auto) 4.5 4.1 Neutrophils % 66.7 61.3 Lymphocytes % 23.3 D 29.3 D Monocytes % 7.1 7.0 Eosinophils % 2.1 1.8 Basophils % 0.8 0.6 Nucleated RBC % 0 0 Hypochromia 1+ Microcytosis 1+ Sodium 141 Potassium 4.7 Chloride 104 Carbon Dioxide 27 Anion Gap 10 BUN 10 Creatinine 1.1 Creat Clearance w eGFR > 60 Random Glucose 101 Calcium 8.5 Phosphorus 4.1 Magnesium 2.1 Total Bilirubin 0.8 AST 13 L ALT 28 Alkaline Phosphatase 47 Total Protein 6.4 Albumin 3.4 06/10/18 06:00 WBC RBC Hgb Hct MCV MCH MCHC RDW Plt Count MPV Absolute Neuts (auto) Neutrophils % Lymphocytes % Monocytes % Eosinophils % Basophils % Nucleated RBC % Hypochromia Microcytosis Sodium 141 Potassium 4.0 Chloride 102 Carbon Dioxide 28 Anion Gap 11 BUN 6 L Creatinine 1.1 Creat Clearance w eGFR > 60 Random Glucose 89 Calcium 8.7 Phosphorus 4.5 Magnesium 1.9 Total Bilirubin 0.6 AST 10 L ALT 26 Alkaline Phosphatase 54 Total Protein 6.7 Albumin 3.5 Active Medications Generic Name Dose Route Start Last Admin Trade Name Freq PRN Reason Stop Dose Admin Acetaminophen 1,000 mg 06/08/18 08:21 Ofirmev Injection - IVPB Q6H PRN PAIN LEVEL 1-5 Amlodipine Besylate 5 mg 06/08/18 10:00 06/09/18 09:07 Norvasc - PO 5 mg DAILY DEE Administration Escitalopram Oxalate 5 mg 06/09/18 10:00 06/09/18 09:07 Lexapro - PO 5 mg DAILY DEE Administration Heparin Sodium (Porcine) 5,000 unit 06/09/18 14:00 06/09/18 15:29 Heparin - SQ 5,000 unit TID DEE Administration Dextrose/Lactated Ringer's 20 meq in 1,000 mls @ 75 mls/hr 06/08/18 08:00 21:36 D5-Lr+20 Meq Kcl - IV 75 mls/hr ASDIR DEE Administration Ceftriaxone Sodium 1 gm/ 50 mls @ 100 mls/hr 06/08/18 10:00 06/09/18 09:07 Dextrose IVPB 100 mls/hr DAILY DEE Administration Protocol Ketorolac Tromethamine 30 mg 06/08/18 08:16 06/09/18 06:12 Toradol Injection - IVPUSH 06/13/18 08:15 30 mg Q6H PRN Administration PAIN LEVEL 7 - 10 Losartan Potassium 100 mg 06/08/18 13:30 06/09/18 09:07 Cozaar - PO 100 mg DAILY DEE Administration Morphine Sulfate 4 mg 06/09/18 11:01 06/10/18 02:41 Morphine Sulfate IVPUSH 4 mg Q6H PRN Administration PAIN LEVEL 7 - 10 Ondansetron HCl 4 mg 06/08/18 07:54 Zofran Injection IVPUSH Q6H PRN NAUSEA AND/OR VOMITING ASSESSMENT/PLAN: 53 yo Male with PMH HTN, Polysubstance use (cocain, street oxycodone, benzo, alcohol) with recent rehab completion, admitted with uncomplicated cholecystitis. Uncomplicated Cholecystitis -Pt currently not complaining of pain or nausea this AM -RUQ u/s noted, slight wall thickening, stones noted -Dow sign positive on admission -For OR pending cardiac optimization -ECG noted with T wave inversions in inferior leads -Cardiology consulted - Ok to proceed with lap cholecystectomy -Repeat ECG, ECHO, Trop pending HTN -Currently stable on home meds -Losartan 100 mg PO Daily -Amlodipine 5 mg PO Daily Polysubstance use -Pt reports most recent benzo use for anxiety a few days prior to admission -Urine Tox noted: Opiates and benzos, morphine given during admission for pain -Pt recent completed 30 day rehab -Discussed with pt the importance of not using after discharge as pt with history of job loss likely secondary to use Anxiety/Depression -Pt with anxiety and depression noted from conversation this morning -Continue home Lexapro 5 mg PO Daily -Recommend close outpatient follow up with psychiatry/psychology DVT Prophylaxis -Early ambulation, pt able to ambulate well without assistance -Heparin held for now for OR FEN -Fluids: D5 LR + 20 mEq KCl @ 75 cc/hr -Electrolytes: No electrolyte abnormalities, BMP in AM -Nutrition: NPO for OR Disposition Med/Surg Visit type - Emergency Visit Emergency Visit: Yes ED Registration Date: 06/08/18 Care time: The patient presented to the Emergency Department on the above date and was hospitalized for further evaluation of their emergent condition. - New Patient This patient is new to me today: Yes Date on this admission: 06/10/18 - Critical Care Critical Care patient: No
--- NOTE | 2018-06-10 07:52 | PN ---
Teaching Attending Note Name of Resident: Gatito Siddiqui ATTENDING PHYSICIAN STATEMENT I saw and evaluated the patient. I reviewed the resident's note and discussed the case with the resident. I agree with the resident's findings and plan as documented with exceptions below. SUBJECTIVE: Patient seen and examined. Ambulating in hallway, no new pain. feels 'hot and cold' but no fevers noted. Anxious about the surgery, but no complaints otherwise. OBJECTIVE: Vital Signs Period Temp Pulse Resp BP Sys/Ingram Pulse Ox Last 24 Hr 97.7 F-98.9 F 64-79 18-18 136-159/61-96 97 Intake & Output 06/07/18 06/08/18 06/09/18 06/10/18 23:59 23:59 23:59 23:59 Intake Total 2470 2280 525 Balance 2470 2280 525 Weight 240 lb 236 lb 3 oz General: ambulating in hallway, no concerns Abdomen:soft, NT throughout, neg alfaro's sign, positive bowel sounds Extremities: no edema Chest: CTAB, no rales or wheezing Active Medications Acetaminophen (Ofirmev Injection -) 1,000 mg IVPB Q6H PRN PRN Reason: PAIN LEVEL 1-5 Amlodipine Besylate (Norvasc -) 5 mg PO DAILY [facility] Last Admin: 06/09/18 09:07 Dose: 5 mg Escitalopram Oxalate (Lexapro -) 5 mg PO DAILY [facility] Last Admin: 06/09/18 09:07 Dose: 5 mg Heparin Sodium (Porcine) (Heparin -) 5,000 unit SQ TID DEE Last Admin: 06/09/18 15:29 Dose: 5,000 unit Dextrose/Lactated Ringer's (D5-Lr+20 Meq Kcl -) 20 meq in 1,000 mls @ 75 mls/ hr IV ASDIR DEE Last Admin: 06/09/18 21:36 Dose: 75 mls/hr Ceftriaxone Sodium 1 gm/ (Dextrose) 50 mls @ 100 mls/hr IVPB DAILY [facility]; Protocol Last Admin: 06/09/18 09:07 Dose: 100 mls/hr Ketorolac Tromethamine (Toradol Injection -) 30 mg IVPUSH Q6H PRN PRN Reason: PAIN LEVEL 7 - 10 Stop: 06/13/18 08:15 Last Admin: 06/09/18 06:12 Dose: 30 mg Losartan Potassium (Cozaar -) 100 mg PO DAILY DEE Last Admin: 06/09/18 09:07 Dose: 100 mg Morphine Sulfate (Morphine Sulfate) 4 mg IVPUSH Q6H PRN PRN Reason: PAIN LEVEL 7 - 10 Last Admin: 06/10/18 02:41 Dose: 4 mg Ondansetron HCl (Zofran Injection) 4 mg IVPUSH Q6H PRN PRN Reason: NAUSEA AND/OR VOMITING Laboratory Results - last 24 hr 06/09/18 06/09/18 06/10/18 08:24 08:24 06:00 WBC 6.7 6.7 RBC 5.52 5.70 H Hgb 12.0 12.5 Hct 38.5 39.2 MCV 69.8 L 68.7 L MCH 21.8 L 21.9 L MCHC 31.3 L 31.9 L RDW 15.7 15.7 Plt Count 221 240 MPV 8.4 8.2 Absolute Neuts (auto) 4.5 4.1 Neutrophils % 66.7 61.3 Lymphocytes % 23.3 D 29.3 D Monocytes % 7.1 7.0 Eosinophils % 2.1 1.8 Basophils % 0.8 0.6 Nucleated RBC % 0 0 Hypochromia 1+ Microcytosis 1+ Sodium 141 Potassium 4.7 Chloride 104 Carbon Dioxide 27 Anion Gap 10 BUN 10 Creatinine 1.1 Creat Clearance w eGFR > 60 Random Glucose 101 Calcium 8.5 Phosphorus 4.1 Magnesium 2.1 Total Bilirubin 0.8 AST 13 L ALT 28 Alkaline Phosphatase 47 Total Protein 6.4 Albumin 3.4 06/10/18 06:00 WBC RBC Hgb Hct MCV MCH MCHC RDW Plt Count MPV Absolute Neuts (auto) Neutrophils % Lymphocytes % Monocytes % Eosinophils % Basophils % Nucleated RBC % Hypochromia Microcytosis Sodium 141 Potassium 4.0 Chloride 102 Carbon Dioxide 28 Anion Gap 11 BUN 6 L Creatinine 1.1 Creat Clearance w eGFR > 60 Random Glucose 89 Calcium 8.7 Phosphorus 4.5 Magnesium 1.9 Total Bilirubin 0.6 AST 10 L ALT 26 Alkaline Phosphatase 54 Total Protein 6.7 Albumin 3.5 Microbiology 06/09/18 11:30 Stool Clostridium difficile Antigen (BRENDA) - Preliminary 06/09/18 11:30 Stool Clostridium difficile Toxin Assay - Preliminary 06/08/18 10:53 Blood - Peripheral Venous Blood Culture - Preliminary NO GROWTH OBTAINED AFTER 24 HOURS, INCUBATION TO CONTINUE FOR 4 DAYS. 06/08/18 10:00 Blood - Peripheral Venous Blood Culture - Preliminary NO GROWTH OBTAINED AFTER 24 HOURS, INCUBATION TO CONTINUE FOR 4 DAYS. ASSESSMENT AND PLAN: 53 yom with HTN, depression, ETOH/cocaine use, admitted with acute calculous cholecystitis. -Acute uncomplicated calculous cholecystitis -Uncontrolled HTN, likely from non compliance -?Mild LEO from hypovolumia -Depression -Polysubstance use (ETOH, cocaine, occasional "oxy/xanax") Plan: Surgery input noted, plan for CCY today, will follow up. COntinue iVF. Pain control with tylenol/toradol. Morphine only for severe pain. Ceftriaxone day 3. Blood cx neg so far. d/c post op per surgical findings. Serial abdominal exams. Continue amlodipine, losartan. Monitor renal function. Continue lexapro Drug screen noted, discussed with patient, initially declined recent benzo use, then states got xanax from doctor, last dose 4 days ago. Reports taking 'oxy' from the streets intermittently. DVTPPX heparin, hold pre-op Dispo pending surgical plans and clinical improvement, d/c in 24 hours post CCY if no concerns. Plan discussed with patient in detail, all questions answered Patient relays understanding and in agreement with the plan.
[2018-06-10] MEDS ORDERED: DEXTROSE 5%-WATER - 50 ML IVPB ONE (08:17)
[2018-06-10] MEDS ORDERED: cefTRIAXone SODIUM 1 GM VIAL ONE (08:17)
[2018-06-10] MEDS: amLODIPine BESYLATE 5 MG TABLET (FP) PO SCH ×2 (08:25→11:08)
[2018-06-10] MEDS: ESCITALOPRAM OXALATE 10 MG TABLET (FP) PO SCH ×2 (08:25→11:08)
[2018-06-10] MEDS: CEFTRIAXONE 1 GM in DEXTROSE 5%-WATER - 50 ML IVPB SCH ×2 (08:25→11:08)
[2018-06-10] MEDS: LOSARTAN POTASSIUM 50 MG TABLET (FP) PO SCH ×2 (08:25→11:08)
[2018-06-10 09:54] LABS: PLATELET ESTIMATE ADEQUATE
--- NOTE | 2018-06-10 11:30 | CON.CARD ---
Consult Consult Specialty:: Cardiology Referred by:: Hospitalist Medicine Reason for Consultation:: Pre-operative cardiovascular evaluation - History of Present Illness Chief Complaint: Abd pain, nausea and emesis History of Present Illness: 53 you male h/o HTN, cholelithiasis, polysubstance use (cocaine, occasional street "oxy"), prior ETOH abuse, medication noncompliance presented with post prandial colicky RUQ/ruddy-umbilical pain with subjective chills, anorexia nausea and emesis since resolved on clear liquid diet, he denies symptoms of chest pain, dyspnea on exertion worse than baseline, near or true syncope, palpitations, orthopnea, PND or LE edema. - History Source History Provided By: Patient Limitations to Obtaining History: No Limitations - Past Medical History Cardio/Vascular: Yes: HTN - Smoking History Smoking history: Never smoked Home Medications - Allergies Allergies/Adverse Reactions: Allergies Allergy/AdvReac Type Severity Reaction Status Date / Time No Known Allergies Allergy Unverified 06/07/18 23:38 - Home Medications Home Medications: Ambulatory Orders Amlodipine Besylate 5 mg PO DAILY 06/07/18 Escitalopram Oxalate [Lexapro -] 5 mg PO DAILY 06/07/18 Losartan Potassium 100 mg PO DAILY 06/07/18 Review of Systems - Review of Systems Constitutional: reports: Chills Gastrointestinal: reports: Abdominal Pain, Nausea, Vomiting Vital Signs: Vital Signs Temperature 99.3 F 06/10/18 08:31 Pulse Rate 61 06/10/18 08:31 Respiratory Rate 18 06/10/18 08:31 Blood Pressure 140/87 06/10/18 08:31 O2 Sat by Pulse Oximetry (%) 97 06/09/18 21:00 Constitutional: Yes: No Distress, Calm Neck: Yes: Supple Respiratory: Yes: Regular, CTA Bilaterally Gastrointestinal: Yes: Soft, Hypoactive Bowel Sounds Cardiovascular: Yes: Regular Rate and Rhythm JVD: No Carotid Bruit: No Heart Sounds: Yes: S1, S2 Murmur: Yes: Systolic Murmur, Grade 1 Edema: No - Other Data Labs, Other Data: CBC, BMP 06/10/18 06:00 06/10/18 06:00 INR, PTT INR 1.12 (0.83-1.09) H 06/08/18 08:18 NSR @ 97 nopnspec inferolateral T wave changes pseudonormalized Echo: Pending Ejection Fraction %: LVEF > or = 40 % Imaging - Results Chest X-ray: Report Reviewed (NAD) Ultrasound: Report Reviewed (Cholelithiasis) Problem List - Problems (1) Pre-operative cardiovascular examination Code(s): Z01.810 - ENCOUNTER FOR PREPROCEDURAL CARDIOVASCULAR EXAMINATION (2) Hypertension Code(s): I10 - ESSENTIAL (PRIMARY) HYPERTENSION Qualifiers: Hypertension type: essential hypertension Qualified Code(s): I10 - Essential (primary) hypertension (3) Polysubstance abuse Code(s): F19.10 - OTHER PSYCHOACTIVE SUBSTANCE ABUSE, UNCOMPLICATED (4) Acute cholecystitis Code(s): K81.0 - ACUTE CHOLECYSTITIS (5) Substance induced mood disorder Code(s): F19.94 - OTH PSYCHOACTIVE SUBSTANCE USE, UNSP W MOOD DISORDER Assessment/Plan 53 yom with HTN, depression, ETOH/cocaine use, admitted with acute calculous cholecystitis. 1. Acute uncomplicated calculous cholecystitis 2. Pre-operative cardiovascular evaluation for abnormal ECG 3. Uncontrolled HTN, likely from non compliance since improved 5. Polysubstance use (ETOH, cocaine, occasional "oxy/xanax") 6. Substance-induced mood disorder Plan: 1. Given absence of symptoms of acute coronary syndrome, decompensated CHF or malignant arrhythmia, may proceed with lap cholecystectomy from CV standpoint 2. Continue Norvasc 5 qd, losartan 100 qd, empiric abx course, f/u echocardiogram already ordered 3. Analgesia as needed 4. Emphasized importance of medication and diet compliance, abstinence from toxic habits 5. Thank you for consultative opportunity
--- NOTE | 2018-06-10 12:04 | ECHO ---
Name: DANELLE SAWANT Exam:Adult Echocardiogram Study Date: 06/10/2018 10:48 AM Age: 53 yrs Reason For Study: Pre-op Height: 75 in Weight: 236 lb BSA: 2.4 m2 MMode/2D Measurements & Calculations IVSd: 1.1 cm Ao root diam: 4.0 cm LVIDd: 5.4 cm LA dimension: 3.3 cm LVIDs: 3.3 cm ACS: 2.4 cm LVPWd: 1.0 cm IVSs: 1.4 cm LVPWs: 1.3 cm EDV(Teich): 142.4 ml ESV(Teich): 45.3 ml Doppler Measurements & Calculations MV E max mary: 55.0 cm/sec Ao V2 max: 130.3 cm/sec MV A max mary: 64.2 cm/sec Ao max P.8 mmHg MV E/A: 0.86 Ao V2 mean: 90.3 cm/sec Ao mean P.8 mmHg Ao V2 VTI: 25.1 cm Med Peak E' Mary: 6.1 cm/sec Med E/e': 9.0 Lat Peak E' Mary: 7.1 cm/sec Lat E/e': 7.7 Procedure A complete two-dimensional transthoracic echocardiogram was performed (2D, M-mode, Doppler and color flow Doppler). Left Ventricle The left ventricle is normal in size. Left ventricular systolic function is normal. Ejection Fraction = 60- 65%. No regional wall motion abnormalities noted. Right Ventricle The right ventricle is normal size. The right ventricular systolic function is normal. Atria The left atrial size is normal. Right atrial size is normal. Mitral Valve The mitral valve is normal in structure and function. There is no mitral regurgitation noted. Tricuspid Valve The tricuspid valve is normal in structure and function. No tricuspid regurgitation. Aortic Valve The aortic valve is normal in structure and function. No aortic regurgitation is present. Pulmonic Valve The pulmonic valve is not well visualized. Great Vessels Mild aortic root dilatation. Pericardium/Pleura There is no pericardial effusion. Interpretation Summary The left ventricle is normal in size. Left ventricular systolic function is normal. No regional wall motion abnormalities noted. Ejection Fraction = 60-65%. The right ventricular systolic function is normal. The left atrial size is normal. Right atrial size is normal. Mild aortic root dilatation. No significant valvular regurgitations There is no pericardial effusion. Previous study is not available for comparison Gutierrez Griffiths MD 06/10/2018 12:03 PM
--- NOTE | 2018-06-10 14:29 | EKG ---
Test Reason : Blood Pressure : / mmHG Vent. Rate : 063 BPM Atrial Rate : 063 BPM P-R Int : 132 ms QRS Dur : 094 ms QT Int : 424 ms P-R-T Axes : 020 051 008 degrees QTc Int : 433 ms NORMAL SINUS RHYTHM NONSPECIFIC T WAVE ABNORMALITY ABNORMAL ECG WHEN COMPARED WITH ECG OF 08-JUN-2018 00:52, VENT. RATE HAS DECREASED BY 34 BPM Confirmed by RAHUL DELGADO MD ([id number]) on 06/10/2018 2:29:00 PM Referred By: Confirmed By:RAHUL DELGADO MD
[2018-06-10] MEDS ORDERED: MIDAZOLAM HCL 2 MG/2 ML SINGLE DOSE VIAL ONE ×2 (15:15)
[2018-06-10] MEDS ORDERED: PROPOFOL 20 ML ONE ×2 (15:19→16:14)
[2018-06-10] MEDS ORDERED: ROCURONIUM BROMIDE 50 MG/5 ML VIAL ONE ×3 (15:21→16:18)
[2018-06-10] MEDS ORDERED: BUPIVACAINE HCL/PF 0.25% (2.5MG/ML) 10 ML VIAL IJ ONE ×2 (16:00)
[2018-06-10] MEDS ORDERED: DESFLURANE GAS 240 ML BOTTLE IH ONE (16:08)
[2018-06-10] MEDS ORDERED: NEOSTIGMINE METHYLSULFATE 0.5 MG/ML - 10 ML MDV ONE (16:15)
[2018-06-10] MEDS ORDERED: GLYCOPYRROLATE 0.2 MG/1 ML VIAL ONE ×3 (16:15→16:18)
--- NOTE | 2018-06-10 16:46 | OP ---
Operative Note - Note: Operative Date: 06/10/18 Pre-Operative Diagnosis: acute cholecystitis/cholelithiasis Operation: laparoscopic cholecystectomy Findings: as above. Surgeon: Matteo Wayne Sulfonator Operator: Breanne Alejandra Anesthesiologist/INTERNATIONAL STUDENT COUNSELOR: Magi Hernandez MD Anesthesia: General Specimens Removed: gallbladder and contents Estimated Blood Loss (mls): 20
--- NOTE | 2018-06-10 16:55 | SURG ---
Surgery Electric Motor Tester Assembler Note Electric Motor Tester Assembler: Breanne Alejandra PA-C Date of Service: 06/10/18 Diagnosis: Acute cholecysitis Procedure: Laproscopic cholecystectomy I was present for the entirety of the operative procedure. For further detail, please refer to operative report.
[2018-06-10] MEDS ORDERED: IBUPROFEN 800 MG/8 ML IJ IVPB PRN (17:13)
[2018-06-10] MEDS ORDERED: ONDANSETRON 4 MG/2 ML VIAL IVPUSH PRN ×2 (17:13→17:15)
[2018-06-10] MEDS ORDERED: ACETAMINOPHEN 1000 MG/100 ML VIAL (NON FORMULARY) IVPB PRN (17:15)
[2018-06-10] MEDS ORDERED: LACTATED RINGERS SOLUTION 1,000 ML IV SCH (17:15)
[2018-06-10] MEDS ORDERED: KETOROLAC TROMETHAMINE 30 MG/1 ML VIAL IVPUSH PRN (17:15)
[2018-06-10] MEDS ORDERED: D5-LR+20 MEQ KCL - 20 MEQ/1,000 ML INFUS.BAG IV SCH (17:15)
[2018-06-10] MEDS ORDERED: KETOROLAC TROMETHAMINE 30 MG/1 ML VIAL IVPUSH ONE (17:18)
[2018-06-10] MEDS ORDERED: ACETAMINOPHEN INJECTION 100 ML IVPB ONE (18:14)
[2018-06-10] MEDS ORDERED: DEXTROSE 5%-LACTATED RINGERS 1,000 ML with POTASSIUM CHLORIDE 20 MEQ IV SCH (21:15)
[2018-06-10] MEDS ORDERED: amLODIPine BESYLATE 5 MG TABLET (FP) PO ONE (21:32)
[2018-06-10] MEDS: HEPARIN NA (PORCINE) 5,000 UNITS/ML 1ML VIAL SQ SCH (21:50)
[2018-06-10] MEDS: D5-LR+20 MEQ KCL - 20 MEQ/1,000 ML INFUS.BAG IV SCH (21:52)
[2018-06-10] MEDS ORDERED: hydrALAZINE HCL 10 MG TABLET PO ONE (23:15)
[2018-06-11] MEDS: morphine SULFATE 4 MG/ML VIAL IVPUSH PRN (02:38)
[2018-06-11] MEDS: HEPARIN NA (PORCINE) 5,000 UNITS/ML 1ML VIAL SQ SCH (05:48)
[2018-06-11 06:41] LABS: HEMATOCRIT 38.5 % (35.4-49); HEMOGLOBIN 12.2 GM/dL (11.7-16.9); MCH 21.7 pg (25.7-33.7); MCHC 31.6 g/dl (32.0-35.9); MEAN CELL VOLUME 68.6 fl (80-96); MEAN PLT VOLUME 8.6 fl (7.5-11.1); PLATELET COUNT 245 K/MM3 (134-434); RBC 5.62 M/mm3 (4.00-5.60); RDW 15.5 % (11.9-15.9); WHITE BLOOD COUNT 9.1 K/mm3 (4.0-10.0)
[2018-06-11 07:13] LABS: CHLORIDE 101 mmol/L (98-107); POTASSIUM 4.4 mmol/L (3.5-5.1); SODIUM 136 mmol/L (136-145)
[2018-06-11 07:19] LABS: ALBUMIN 3.6 g/dl (3.4-5.0); ALK PHOS 53 U/L (45-117); ANION GAP 9 MMOL/L (8-16); BILIRUBIN,TOTAL 0.7 mg/dL (0.2-1); BLOOD UREA NITROGEN 10 mg/dL (7-18); CALCIUM 8.9 mg/dL (8.5-10.1); CO2 26 mmol/L (21-32); CREATININE 1.2 mg/dL (0.55-1.3); GLUCOSE,RANDOM 122 mg/dL (74-106); MAGNESIUM 2.1 mg/dL (1.8-2.4); PHOSPHOROUS 3.7 mg/dL (2.5-4.9); SGOT/AST 31 U/L (15-37); SGPT/ALT 42 U/L (13-61)
--- NOTE | 2018-06-11 08:26 | PN ---
Progress Note (short form) - Note Progress Note: Anesthesia Post op Pt seen and examined S:Alert and awake O: Vital Signs Temperature 98.7 F 06/11/18 05:00 Pulse Rate 78 06/11/18 05:00 Respiratory Rate 18 06/11/18 05:00 Blood Pressure 139/85 06/11/18 05:00 O2 Sat by Pulse Oximetry (%) 100 06/10/18 19:00 CBC, BMP 06/11/18 06:00 06/11/18 06:00 A/P Current Active Problems Acute cholecystitis (Acute) Hypertension (Acute) Polysubstance abuse (Acute) Pre-operative cardiovascular examination (Acute) Substance induced mood disorder (Acute) s/p lap cholecystectomy Doing well post op Continue current care Jordy Christianson MD
[2018-06-11] MEDS ORDERED: LACTATED RINGERS SOLUTION 1,000 ML IV SCH (08:40)
[2018-06-11] MEDS ORDERED: ESCITALOPRAM OXALATE 10 MG TABLET (FP) PO SCH (10:00)
[2018-06-11] MEDS ORDERED: LOSARTAN POTASSIUM 50 MG TABLET (FP) PO SCH (10:00)
[2018-06-11] MEDS ORDERED: amLODIPine BESYLATE 5 MG TABLET (FP) PO SCH (10:00)
[2018-06-11] MEDS ORDERED: amLODIPine BESYLATE 10 MG TABLET (FP) PO SCH (10:00)
--- NOTE | 2018-06-11 10:28 | OP ---
DATE OF OPERATION: 06/10/2018 PREOPERATIVE DIAGNOSES: Acute cholecystitis, cholelithiasis. POSTOPERATIVE DIAGNOSES: Acute cholecystitis, cholelithiasis. PROCEDURE: Laparoscopic cholecystectomy. SURGEON: Matteo Wayne MD BODY LINER: Breanne Alejandra PA-C ANESTHESIA: General. OPERATIVE FINDINGS: Acute cholecystitis and cholelithiasis. The rest of the findings were unremarkable. DESCRIPTION OF PROCEDURE: DESCRIPTION OF PROCEDURE: The patient was placed on the operating room table in supine position. After the induction of general anesthesia, the patient's abdomen was prepped with ChloraPrep and draped in sterile fashion. Time-out was taken and then pneumoperitoneum established above the umbilicus using a Veress needle. Once 15 mm of intra-abdominal pressure was obtained, a 5-mm port was placed at the umbilicus. Additional lateral 5-mm ports and a subxiphoid 12-mm port were placed and laparoscopy carried out, and the previously noted findings were observed. The gallbladder was placed on cephalad and lateral traction, and dissection was begun at the neck of the gallbladder where the peritoneum was opened medially and laterally using blunt and sharp dissection and electrocautery. Dissection continued in the triangle of Calot where the cystic duct was identified coursing from the neck of the gallbladder distally to the common bile duct. It was dissected proximally and distally for length. Similarly, the artery was similarly identified and dissected. A critical view of safety was taken, and then the cystic duct divided proximally and distally using Endo Saleem after it was clipped twice proximally and distally with large hemoclips. The artery was similarly clipped and divided. Hemostasis was checked for and noted to be good and then the gallbladder was removed from the liver bed in a retrograde fashion using electrocautery. Prior to removal from the edge of the liver, hemostasis was again verified and then the gallbladder removed from the edge of the liver, placed in an EndoCatch, and brought out through the subxiphoid port. Pneumoperitoneum was reestablished, hemostasis verified again, and then the 5-mm lateral and subxiphoid ports were removed under laparoscopic vision without evidence of bleeding from the port sites. The umbilical port was removed and the pneumoperitoneum evacuated. All port sites were infiltrated with 0.5% Marcaine and the skin edges closed with 4-0 Biosyn in a subcuticular and continuous fashion. Steri-Strips and Band-Aid dressings were placed and the procedure terminated at this point and the patient aroused from general anesthesia and transferred to the post anesthesia care unit in stable condition awake and alert. ESTIMATED BLOOD LOSS: 20 mL. REPLACEMENTS: Crystalloid. DRAINS: None. SPECIMENS: Gallbladder and contents to pathology. I, Matteo Wayne, was physically present in the operating room from the time the patient was placed on the operating table until he was transferred to the post anesthesia care unit in my accompaniment. MD LILIANA Borrego/[id number] MTDD
--- NOTE | 2018-06-11 10:30 | PN ---
Progress Note (short form) - Note Progress Note: Attending Surgeon POD #1 s/p lap rolf No c/o; h/e had urinary retention; HNV since his FC was removed at 08:30 AM; tolerated a diet VSS AF abdo-soft; flat and non tender; port sites c/d/i; o/w negative labs noted IMP: stable post op PLAN: Surgically stable to d/c to office f/u next week pending voiding trial Matteo Wayne MD FACS
--- NOTE | 2018-06-11 12:27 | DS ---
Physical Exam: SUBJECTIVE: Patient seen and examined this AM. States he had urinary incontinence overnight and required a catheter. Currently with no complaints and says he tolerated clear liquids well and passed flatus once overnight with no bowel movements yet. OBJECTIVE: Vital Signs Period Temp Pulse Resp BP Sys/Ingram Pulse Ox Last 24 Hr 97.8 F-99.1 F 72-100 14-22 139-185/80-110 98-100 PHYSICAL EXAM GENERAL: A&O, no acute distress HEAD: Normocephalic, atraumatic. EYES: PERRL, no scleral icterus EARS, NOSE, THROAT: oropharynx clear without exudates. Moist mucous membranes. NECK: supple without lymphadenopathy LUNGS: CTA b/l, no crackles or wheezes HEART: Regular rate and rhythm, normal S1 and S2 without murmur ABDOMEN: Soft, nontender to palpation, normoactive bowel sounds, laparoscopy sites noted with clean dry bandaids covering MUSCULOSKELETAL: No bony deformities or tenderness. EXTREMITIES: 2+ pulses, warm, well-perfused. No peripheral edema. NEUROLOGICAL: Cranial nerves II-XII grossly intact. Normal speech. LABS Laboratory Results - last 24 hr 06/11/18 06/11/18 06:00 06:00 WBC 9.1 RBC 5.62 H Hgb 12.2 Hct 38.5 MCV 68.6 L MCH 21.7 L MCHC 31.6 L RDW 15.5 Plt Count 245 MPV 8.6 Sodium 136 Potassium 4.4 Chloride 101 Carbon Dioxide 26 Anion Gap 9 BUN 10 Creatinine 1.2 Creat Clearance w eGFR > 60 Random Glucose 122 H Calcium 8.9 Phosphorus 3.7 Magnesium 2.1 Total Bilirubin 0.7 AST 31 ALT 42 Alkaline Phosphatase 53 Total Protein 7.0 Albumin 3.6 IMAGING: CXR: No acute lung pathology RUQ U/S: Cholelithiasis, minimal wall thickening of gallbladder, hepatomegaly, possible fatty liver ECHO: Normal LV size and function, EF 60-65% HOSPITAL COURSE: Date of Admission:06/08/18 Date of Discharge: 06/11/18 53 yo Male with history of HTN and Depression and polysubstance use (alcohol, cocaine, occasional oxy/benzo as per pt) was admitted following one week of nausea and vomiting. Pt with recent job loss, no insurance, and likely medication noncompliance due to finances. He was found to have acute uncomplicated cholelithiasis. He was seen by surgery who recommended elective cholecystectomy. ECG changes noted with T wave inversions in inferior leads. Troponin was negative, repeat ECG showed no changes, and ECHO was normal as mentioned above. He was also seen by cardiology for preop optimization. They recommended to proceed with cholecystectomy as planned. Pt was stable post op and tolerating diet well. He had urinary retention post op and required insertion of a Villalpando. He states this has happened after anesthesia before. He stated he urinates normally post op and then retains afterwards and requires a catheter. The villalpando was removed and the patient urinated well without retention in the AM. He was deemed medically safe for discharge with follow up by PCP and surgery outpatient within 1-2 weeks. Minutes to complete discharge: 40 Discharge Summary Reason For Visit: CHOLECYSTITIS Current Active Problems Acute cholecystitis (Acute) Hypertension (Acute) Polysubstance abuse (Acute) Pre-operative cardiovascular examination (Acute) Substance induced mood disorder (Acute) Condition: Good - Instructions Diet, Activity, Other Instructions: You were admitted with nausea, vomiting and pain likely caused by gallstones. You were seen by a surgeon who recommended to take our your gallbladder. You tolerated the procedure well and your nausea and vomiting improved. After the procedure you were retaining your urine and required a catheter overnight. The catheter was removed and you were able to urinate without issues. Your home dose of Norvasc was increased from 5mg to 10 mg daily. You should take one pill daily. Stop taking the 5 mg Norvasc You should otherwise continue your home medications as they are prescribed prior to your hospitalization. You can take over the counter tylenol as directed for pain. Do not take medications unless prescribed and only take as instructed. It is important that you follow up with your primary care physician within 1 week. He should check your blood pressure to ensure that is within goal and adjust your medications further as needed. It is recommended that you speak with him about a referral for a therapist that could help you with your anxiety and depression. You should also follow up with the Surgeon, Dr. Wayne in the office in 1 week. 1 If you have worsening symptoms, it is important that you call your primary doctor or return to the Emergency Department. Referrals: Matteo Wayne MD [Staff Physician] - Jarvis Warren MD [Primary Care Provider] - Disposition: HOME - Home Medications Comprehensive Discharge Medication List: Ambulatory Orders Escitalopram Oxalate [Lexapro -] 5 mg PO DAILY 06/07/18 Losartan Potassium 100 mg PO DAILY 06/07/18 Amlodipine Besylate [Norvasc -] 10 mg PO DAILY #30 tablet 06/11/18 This patient is new to me today: No Emergency Visit: Yes ED Registration Date: 06/08/18 Care time: The patient presented to the Emergency Department on the above date and was hospitalized for further evaluation of their emergent condition. Critical Care patient: No - Discharge Referral Referred to [facility] Med [facility] No
--- NOTE | 2018-06-11 12:45 | PN ---
Teaching Attending Note Name of Resident: Gatito Siddiqui ATTENDING PHYSICIAN STATEMENT I saw and evaluated the patient. I reviewed the resident's note and discussed the case with the resident. I agree with the resident's findings and plan as documented. SUBJECTIVE:asymptomatic. states he had similar episode in the past after surgery where was able to urinate initially after surgery and then had difficulty later resulting in villalpando placement for about a week then after it was removed had no difficulties. denies CP, SOB, fever, chills, N/V/C/D, dysuria , hematuria, urinary frequency, sensation of inadequate voiding, urinary hesitancy, REYES, blurred vision +flatus OBJECTIVE: Last Vital Signs Temp Pulse Resp BP Pulse Ox 99 F 72 18 158/103 100 06/11/18 09:00 06/11/18 09:00 06/11/18 09:00 06/11/18 09:00 06/10/18 19:00 General NAD Abdomen soft NT/ND +BS. bandage over surgical incisions were clean/dry/intact. no bladder distention ASSESSMENT AND PLAN: 53 yo M with HTN, depression, ETOH/cocaine use, admitted with acute calculous cholecystitis. 1. Acute uncomplicated calculous cholecystitis- s/p lap cholecystectomy 06/10. no complications. tolerated surgery well. tolerating diet. +flatus. give regular diet. can f/u with surgeon in a week. further recommendations from surgeon 2. Urinary retention- likely anesthesia complications. with similar episode in the past. villalpando placed last night due to retention with >1L output. villalpando removed this AM. will monitor for UOP. may need to replace villalpando and have f/u with urology as outpatient for further workup. 3. HTN- uncontrolled. hx of noncompliance. seems like anxiety has somewhat impact as pt indicated hes been under stress and loss of desire for previously enjoyed activity. encourage lifestyle modications. increase norvasc to 10mg. mmonitor for improvement 4. Mild LEO from hypovolumia- resolved 5. Depression- no homicidal/suicidal thoughts. had therapist in the past whom he fired after a fight. admits to ahedonia but desires to seek out a new therapist and start exercising which he found enjoyment in the past. encouraged to see therapist and reach out to family/friends for support. 6. Polysubstance use (ETOH, cocaine, occasional "oxy/xanax")- encouraged to seek help from therapist. only use medications as instructed. to not purchase medications illegally. 7. d/c planning later today.
--- NOTE | 2018-06-11 14:13 | PN ---
Progress Note, Physician Chief Complaint: Events noted Not in distress History of Present Illness: Patient was seen and examined. Awake and alert. Chart was reviewed Denies chest pain, SOB or palpitations - Current Medication List Current Medications: Active Medications Acetaminophen (Ofirmev Injection -) 1,000 mg IVPB Q6H PRN PRN Reason: PAIN LEVEL 1-5 Last Admin: 06/10/18 18:10 Dose: 1,000 mg Amlodipine Besylate (Norvasc -) 10 mg PO DAILY REPLACED BY [facility] Last Admin: 06/11/18 09:24 Dose: 10 mg Escitalopram Oxalate (Lexapro -) 5 mg PO DAILY REPLACED BY [facility] Last Admin: 06/11/18 09:24 Dose: 5 mg Fentanyl (Sublimaze Injection -) 50 mcg IVPUSH [id number] PRN PRN Reason: PAIN-PACU ORDER X 4 DOSES ONLY Last Admin: 06/10/18 18:30 Dose: 50 mcg Heparin Sodium (Porcine) (Heparin -) 5,000 unit SQ TID REPLACED BY [facility] Last Admin: 06/11/18 05:48 Dose: Not Given Potassium Chloride 20 meq/ (Dextrose/Lactated Ringer's) 1,010 mls @ 75 mls/hr IV Q13H REPLACED BY [facility] Last Admin: 06/10/18 22:44 Dose: 75 mls/hr Ketorolac Tromethamine (Toradol Injection -) 30 mg IVPUSH Q6H PRN PRN Reason: PAIN LEVEL 7 - 10 Stop: 06/13/18 08:15 Last Admin: 06/10/18 17:30 Dose: 30 mg Losartan Potassium (Cozaar -) 100 mg PO DAILY REPLACED BY [facility] Last Admin: 06/11/18 09:24 Dose: 100 mg Morphine Sulfate (Morphine Sulfate) 4 mg IVPUSH Q6H PRN PRN Reason: PAIN LEVEL 7 - 10 Last Admin: 06/11/18 02:38 Dose: 4 mg Ondansetron HCl (Zofran Injection) 4 mg IVPUSH Q6H PRN PRN Reason: NAUSEA AND/OR VOMITING Ondansetron HCl (Zofran Injection) 4 mg IVPUSH Q6H PRN PRN Reason: NAUSEA AND/OR VOMITING - Objective Vital Signs: Vital Signs Temperature 99 F 06/11/18 09:00 Pulse Rate 72 06/11/18 09:00 Respiratory Rate 18 06/11/18 09:00 Blood Pressure 158/103 06/11/18 09:00 O2 Sat by Pulse Oximetry (%) 100 06/10/18 19:00 HENT: Yes: Atraumatic Neck: Yes: Supple Cardiovascular: Yes: Regular Rate and Rhythm Respiratory: Yes: CTA Bilaterally Gastrointestinal: Yes: Normal Bowel Sounds, Soft. No: Tenderness Edema: No Labs: CBC, BMP 06/11/18 06:00 06/11/18 06:00 Problem List - Problems (1) Acute cholecystitis Code(s): K81.0 - ACUTE CHOLECYSTITIS (2) Hypertension Code(s): I10 - ESSENTIAL (PRIMARY) HYPERTENSION Qualifiers: Hypertension type: essential hypertension Qualified Code(s): I10 - Essential (primary) hypertension (3) Polysubstance abuse Code(s): F19.10 - OTHER PSYCHOACTIVE SUBSTANCE ABUSE, UNCOMPLICATED (4) Substance induced mood disorder Code(s): F19.94 - OTH PSYCHOACTIVE SUBSTANCE USE, UNSP W MOOD DISORDER Assessment/Plan 1. Acute uncomplicated calculous cholecystitis s/p lap cholecystectomy 2. HTN 3. Polysubstance use (ETOH, cocaine, occasional "oxy/xanax") 4. Substance-induced mood disorder PLAN: 1. Post operative care 2. Continue Norvasc and Losartan 3. Analgesia as needed 4. Emphasized importance of medication and stopping with above substance abuse Gutierrez Griffiths MD
[2018-06-11 14:43] VITALS: BP 143/88; PULSE 93; TEMP 98.9
--- NOTE | 2018-06-13 17:03 | PATH ---
Surgical Pathology Report Patient Name: DANELLE SAWANT [facility]. Rec. #: [id number] /Age/Gender: 1965 (Age: 53) / F Account: [id number] Location: [facility] R Taken: 06/10/2018 Received: 06/11/2018 Reported: 06/13/2018 Physicians: Matteo Wayne MD Specimen(s) Received GALLBLADDER AND CONTENTS Clinical History Cholecystitis Final Diagnosis GALLBLADDER, CHOLECYSTECTOMY: CHRONIC CHOLECYSTITIS, FOCAL ADENOMYOMATOUS HYPERPLASIA, AND CHOLELITHIASIS. Electronically Signed Ashwin Pettit M.D. Gross Description Received in formalin, labeled "gallbladder," is an 8.7 x 4.0 x 3.8 cm. gallbladder with a 0.2 cm. in length portion of cystic duct attached. The outer surface is hart-courtney and varies from smooth to shaggy. The lumen contains green, tenacious bile as well as abundant yellow, irregular to fragmented choleliths ranging from 0.1-2.0 cm in greatest dimension. The mucosa is green with gold cholesterol stippling. There is a 1.0 cm in greatest dimension focus of thickened wall at the fundus with submucosal cystic spaces. The wall of the gallbladder averages 0.2 cm. in thickness. Birth Attendant sections are submitted in 2 cassettes as follows: 1-cystic duct margin and digital media representative gallbladder; 2-gallbladder fundus no. 06/11/201806/11/2018
== END 2018-06-11 14:08 | disposition home or self-care (01) | DRG 263 ==
LOC: EDSEX → FER 23:32 → J6S 06-08 02:26 → J7W 06-08 12:47
PROVIDERS: ADMIT Surgery; ATTEND Internal Medicine
PROC: 0FT44ZZ Resection of Gallbladder, Percutaneous Endoscopic Approach (ICD-10-PCS; principal; 2018-06-10 12:30)
DX: K80.00 Calculus of gallbladder with acute cholecystitis without obstruction (principal); N17.9 Acute kidney failure, unspecified; F32.9 Major depressive disorder, single episode, unspecified; I10 Essential (primary) hypertension; F14.10 Cocaine abuse, uncomplicated; F10.10 Alcohol abuse, uncomplicated; F41.9 Anxiety disorder, unspecified; Z91.14 Patient's other noncompliance with medication regimen; F19.94 Other psychoactive substance use, unspecified with psychoactive substance-induced mood disorder; R33.8 Other retention of urine; E86.1 Hypovolemia
CPT/HCPCS: 36415; 71045-TC-FY; 76705-TC; 80048; 80053; 80076; 80307; 81003; 82550; 82553; 83690; 83735; 84100; 84484; 85025; 85027; 85610; 86850; 86900; 86901; 87040; 87324; 87449; 88304-TC; 93005; 93010; 93306-TC; 94760; 99283-25; J0131; J1644; J7030